=== PATIENT | female | born 1940 | race Caucasian/White ===

== ENCOUNTER 2020-10-30 14:59 | Emergency (ER) | payer MEDICARE, MEDICAID ==
[~2020-10-30] VITALS: Ht 170.2 cm; Wt 70.0 kg
[~2020-10-30 14:59] MED LIST: epiNEPHrine 0.1mg/ml 10ml syringe ONE; sod chloride 0.9% 10ml flush syringe IV ONE
[2020-10-30 15:45] LABS: ABG BASE EXCESS -5.1 mmol/L (-2.0-2.0); ABG HCO3 19.7 mmol/L (22.0-26.0); ABG OXYGEN SATURATION 97.3 % (94-97); ABG PO2 (T) 103.8 mmHg (75.0-100.0); ALLEN'S TEST POSITIVE; FCOHb 1.9 % (0.0-3.9); FLOW 15 L/min; FMetHb 0.3 % (0.0-1.5); FO2Hb 95.2 % (94-97); TOTAL HEMOGLOBIN 11.1 G/dl (12.0-16.0)
[2020-10-30 15:51] LABS: BASOPHILS # (AUTO) 0.1 X10'3 (0-0.2); BASOPHILS % (AUTO) 1.2 % (0-1); EOSINOPHILS % (AUTO) 0 % (0-6); LYMPHOCYTES # (AUTO) 0.7 X10'3 (1.1-4.8); LYMPHOCYTES % (AUTO) 6.4 % (21-51); MEAN PLATELET VOLUME 8.8 FL (7.4-10.4); MONOCYTES # (AUTO) 0.9 X10'3 (0-0.9); MONOCYTES % (AUTO) 8.2 % (2-12); NEUTROPHILS # (AUTO) 9.1 X10'3 (1.8-7.7); NEUTROPHILS % (AUTO) 84.2 % (42-75); PLATELET COUNT 321 X10'3 (140-440); WHITE BLOOD COUNT 10.8 X10'3 (4.5-11.0)
[2020-10-30 16:03] LABS: HEMATOCRIT 31.7 % (35.0-45.0); HEMOGLOBIN 10.1 g/dl (12.0-16.0); MEAN CORPUSCULAR VOLUME 62.1 FL (78-98); RED BLOOD COUNT 5.11 X10'6 (4.20-5.60)
[2020-10-30 16:04] LABS: ALANINE AMINOTRANSFERASE 386 U/L (12-78); ALBUMIN 2.8 G/DL (3.4-5.0); ALBUMIN/GLOBULIN RATIO 0.7 (1.1-1.5); ALKALINE PHOSPHATASE 133 IU/L (46-116); ANION GAP 16 (8-16); ASPARTATE AMINO TRANSFERASE 392 U/L (10-37); BILIRUBIN,TOTAL 1.4 MG/DL (0.1-1.0); BLOOD UREA NITROGEN 62 MG/DL (7-18); BUN/CREATININE RATIO 44.6 (6.6-38.0); CALCIUM 8.3 MG/DL (8.5-10.1); CHLORIDE 101 MMOL/L (99-107); CREATININE 1.39 MG/DL (0.40-0.90); GLUCOSE 125 MG/DL (70-104); MEAN CORPUSCULAR HEMOGLOBIN 19.7 PG (27.0-31.0); MEAN CORPUSCULAR HGB CONC 31.7 g/dL (33.0-36.5); POTASSIUM 4.5 MMOL/L (3.5-5.1); RED CELL DISTRIBUTION WIDTH 18.3 % (11.5-14.5); SODIUM 140 MMOL/L (135-145); TOTAL CARBON DIOXIDE 22.9 MMOL/L (24-32); TOTAL PROTEIN 7.1 G/DL (6.4-8.2); eGFR 36 ML/MIN
[2020-10-30] MEDS ORDERED: azithromycin/NS 500mg/250ml 250 ML IV ONE (16:05)
[2020-10-30] MEDS ORDERED: CefTRIAXone/D5W-Rocephin 1gm 50 ML IV ONE (16:05)
[2020-10-30] MEDS ORDERED: normal saline 1000ML IV soln IV ONE (16:10)
[2020-10-30 16:23] LABS: ANISOCYTOSIS 2+; BURR CELLS 2+; HYPOCHROMASIA 2+; MICROCYTOSIS 2+; PLATELET ESTIMATE NORMAL
[2020-10-30 16:24] LABS: ELLIPTOCYTES 1+; POIKILOCYTOSIS 2+; TARGET CELLS FEW
[2020-10-30 16:57] LABS: CLARITY,URINE CLOUDY (Clear); COLOR,URINE YELLOW (Yellow); GLUCOSE, URINE NEGATIVE (Neg); KETONES,URINE NEGATIVE (Neg); LEUKOCYTE ESTERASE ,URINE MODERATE (Neg); NITRITES, URINE NEGATIVE (Neg); OCCULT BLOOD,URINE MODERATE (Neg); PH,URINE 6.5 (4.8-8.0); PROTEIN,URINE 100 mg/dl (Neg); UA COLLECTION TYPE CLN CATCH MIDSTREAM
[2020-10-30 17:00] LABS: OCCULT BLOOD STOOL NEGATIVE (Neg)
[2020-10-30 17:02] LABS: SQUAMOUS EPITHELIAL CELL,UR FEW /LPF (FEW)
[2020-10-30 17:05] LABS: BACTERIA,URINE 3+ /HPF (Neg)
[2020-10-30] MEDS ORDERED: iohexol 350MG/ML 100ml bottle IV ONE (17:07)
[2020-10-30] MEDS ORDERED: NORepinephrine 8mg/ 250ml NS 250 ML IV PRN (18:20)
[2020-10-30] MEDS ORDERED: heparin 10,000 units/1 ML INJ IV PRN (18:25)
[2020-10-30] MEDS ORDERED: heparin 25,000 UNIT/250ml bag 250 ML IV SCH (18:25)
[2020-10-30] MEDS ORDERED: heparin 10,000 units/1 ML INJ IV ONE ×3 (18:25→19:25)
[2020-10-30] MEDS ORDERED: acetaminophen 325mg tablet PO PRN ×2 (18:40)
[2020-10-30] MEDS ORDERED: potassium Cl 20 mEq SR tablet PO PRN ×2 (18:40)
[2020-10-30] MEDS ORDERED: LIDOcaine 2% 10ml TOPICAL JELLY (Urojet) TP ONE (18:40)
[2020-10-30] MEDS ORDERED: ondansetron/PF 4mg/2ml inj IV PRN (18:40)
[2020-10-30] MEDS ORDERED: amiodarone/D5 360MG/200ML BAG 200 ML IV SCH ×2 (18:40→18:45)
[2020-10-30] MEDS ORDERED: magnesium hydroxide 30ml (MOM) UD suspension PO PRN (18:40)
[2020-10-30] MEDS ORDERED: amiodarone 150mg/dext, iso-os 100 ML IV ONE ×2 (18:40→18:45)
--- NOTE | 2020-10-30 18:44 | NUR ---
DR SILVESTRE AT BEDSIDE TO UPDATE ME. STATES INSTESIVIST HAS BEEN CONSULTED. PT WILL NEED CENTRAL LINE, WILL BE STARTED ON NOREPINEPHRIN AND AMIODERONE GTT (CURRENT BP 92/66), REPEAT ABG ORDERED, RT TO START PT ON OMID FLOW HUMIDIFIED O2, HEPARIN GTT TO BE STARTED PT HAS PE AND RIGHT ATRIAL THROMBUS. REMAINS ON 15 L NRB WITH SATS 85-88%. PT IS A&OX2. IS MAKING SOME NEEDS KNOWN, REQUESTING WATER.
--- NOTE | 2020-10-30 19:19 | NUR ---
DR BARLOW AT BEDSIDE TO PLACE FEMORAL CENTRAL LINE. HR REMAINS 133 AFIB. BP 96/75. HEP GTT AND LEVOPHED JUST STARTED PER PROTOCOL.
[2020-10-30 19:20] LABS: PARTIAL THROMBOPLASTIN TIME 22 SECONDS (22-32)
--- NOTE | 2020-10-30 19:31 | NUR ---
PTS HR DROPPING FROM 130'S TO 45 WHEN GETTING THE CENTRAL FEMORALLINE PLACED HEPARIN PER PROTOCOL ALREADY INFUSING AND BOLUS DOSE GIVEN DR. SILVESTRE REPORTS PT IS NO CPR AND ONLY INTUBATION IF IF WILL SIGNIFICANTLY IMIPROMVE THE OUTCOME. HAS ALREADY DISCUSSED THIS WITH THE DAUGHTER FRANKLIN WAS AT BEDSIDE EARLIER. 192 RT, MARIO, AT BEDSIDE AND PLACING PT ON BIPAP. RR DROPPING FROM 38 TO 12. SETTINGS AT 20/7, RATE 24. 192 EPINEPHRINE 1ML IN 9 ML OF SALINE GIVEN. UNABLE TO ESTABLISH CENTRAL LINE. 1929 REST OF EPINEPHRINE GIVEN. 1935, US PER DR. SILVESTRE REPORTS NO CARDIAC MOTION AND PEA ON MONITOR. 1935 ASYSTOLE ON MONITOR AND TIME OF CALLED BY DR. BARLOW.
[2020-10-30 19:36] VITALS: BP 35/17
--- NOTE | 2020-10-30 19:40 | NUR ---
DAUGHTER CALLED BY DR. SILVESTRE.
--- NOTE | 2020-10-30 20:24 | NUR ---
page out to [facility].
--- NOTE | 2020-10-30 20:46 | NUR ---
lead based paint technician swathi spoken to and he report pt will NOT be a Health Technician's case and remains can be released to Mortuary.
--- NOTE | 2020-10-30 21:04 | NUR ---
Daughter Priscilla called and clarified they would like to choose [facility] in [place] as mortuary and reports they had no specific plans in place for her mother other than she whished to be creamated. i called [facility] , spoke with Fani. Pts daughter also requested not to be contacted until tomorrow by Mortuary, if possible. Fani reports they will not need to contact her tonight and will respect this request. I confirmed with daughter that Pt only had dentures and no other personal belongings.
--- NOTE | 2020-10-30 22:35 | NUR ---
aldo oviedo & kacey, arrivinig to parts picker patients remains. pt to be transported to their [facility].
--- NOTE | 2020-10-31 00:08 | NUR ---
Evan, [facility] calling to follow up on Pt. He reports Pt will be a candidate for donation and that they will contact the daughter regarding donation.
== END 2020-10-30 22:39 | disposition expired ==
LOC: ER 15:01 → EDBD 15:01 → UNDOADMIN 18:40 → ED HOLD 18:40 → UNDODISIN 22:39
DX: I46.9 Cardiac arrest, cause unspecified (principal); Z20.822 Contact with and (suspected) exposure to COVID-19; I26.99 Other pulmonary embolism without acute cor pulmonale; I51.3 Intracardiac thrombosis, not elsewhere classified; A41.9 Sepsis, unspecified organism; J18.9 Pneumonia, unspecified organism; R55 Syncope and collapse; F03.90 Unspecified dementia, unspecified severity, without behavioral disturbance, psychotic disturbance, mood disturbance, and anxiety; J44.9 Chronic obstructive pulmonary disease, unspecified; Z87.891 Personal history of nicotine dependence; Z72.89 Other problems related to lifestyle
CPT/HCPCS: 36415; 36556; 36600; 70450; 71045; 71275; 74177; 76700; 80053; 81001; 82272; 82803; 83605; 83880; 84145; 84443; 84484; 85008; 85018; 85025; 85610; 85730; 87040; 87077; 87088; 87186; 87426; 93005; 94799; 96365; 96366; 96368; 99291; 99292; J0171; J0456; J0696; J1644; J7030; Q9967; 76705; 96367; 96375; 99285; G0378